=== PATIENT | male | born 1965 | race Caucasian/White ===

== ENCOUNTER → 2016-05-31 | Outpatient (CLI) | payer BC, OTHER ==
--- NOTE | 2016-05-31 21:26 | MR ---
EXAMINATION TYPE: MR lumbar spine wo con DATE OF EXAM: 05/31/2016 9:16 PM COMPARISON: NONE HISTORY: Sciatica / Deg Disc Disease TECHNIQUE: T1 and T2 axial and sagittal images of the lumbar spine are submitted. FINDINGS: There is no abnormal signal seen within the visualized spinal cord or paraspinal soft tissu es. There is diffuse heterogeneous marrow changes which could be related to osteopenia. Length (disor ders occupying marrow disorder not entirely excluded correlate clinically. At L1-2 there is no degenerative disc disease, disc herniation or canal stenosis. Neural foramina pat ent. At L2-3 there is no degenerative disc disease, disc herniation or canal stenosis or neural foramina p atent At L3-4 there is disc desiccation with mild degenerative disc disease. There is broad-based central d isc bulging with mild effacement of thecal sac but no canal stenosis. Mild bilateral foraminal encroa chment with mild facet hypertrophy At L4-5 there is mild degenerative disc disease. There is mild broad-based central disc bulging with mild bilateral foraminal encroachment but no canal stenosis or focal herniation. At L5-S1 there is severe degenerative disc disease. Broad-based disc bulging is seen with moderate bi lateral foraminal encroachment. IMPRESSION: 1. There is disc bulging and degenerative disc disease at levels L3-S1 with mild effacement of thecal sac and foraminal encroachment as discussed above but no canal stenosis or focal herniation. 2. Severe degenerative disc disease L5-S1. 3. Nonspecific diffuse heterogeneous marrow signal. This could been the basis of osteopenia or osteop orosis. Correlate with serum studies to exclude myeloproliferative disorder or blood dyscrasia.
== END | disposition home or self-care (01) ==
LOC: RADMRIMAIN 20:41
PROVIDERS: ATTEND Internal Medicine
DX: M51.16 Intervertebral disc disorders with radiculopathy, lumbar region (principal); M51.17 Intervertebral disc disorders with radiculopathy, lumbosacral region
CPT/HCPCS: 72148